=== PATIENT | male | born 1960 | race Caucasian/White ===

== ENCOUNTER → 2016-06-12 | Outpatient (CLI) | payer BC ==
[2016-06-12 10:18] LABS: HEMOGLOBIN A1C 6.74 % (4.2-6.0); MEAN BLOOD GLUCOSE (CALC) 138.442 mg/dL
[2016-06-12 10:23] LABS: ASPARTATE AMINO TRANSFERASE 44 IU/L (21-57); BILIRUBIN,TOTAL 0.8 mg/dL (0.3-1.2); BLOOD UREA NITROGEN 15 mg/dL (7-22); BUN/CREATININE RATIO 13.63 (6-20); CALCIUM 9.7 mg/dL (8.7-10.7); CHLORIDE 99 meq/L (98-112); CREATININE 1.1 mg/dL (0.70-1.50); EST GLOMERULAR FILTRATION > 60 (>60 ml/min/1.73m(2)); GLUCOSE 115 mg/dL (78-110); HDL CHOLESTEROL 44 mg/dL (40-150); POTASSIUM 4.4 meq/L (3.8-5.2); SODIUM 139 meq/L (135-145); TOTAL PROTEIN 7.5 g/dL (6.1-8.0); TRIGLYCERIDES 78 mg/dL (44-200)
[2016-06-12 10:28] LABS: CREATININE, URINE 93.9 MG/DL (15-500)
== END ==
LOC: LAB 09:55
PROVIDERS: ATTEND Internal Medicine
DX: E10.9 Type 1 diabetes mellitus without complications (principal); Z79.4 Long term (current) use of insulin; E03.9 Hypothyroidism, unspecified; E78.5 Hyperlipidemia, unspecified; Z96.41 Presence of insulin pump (external) (internal)
CPT/HCPCS: 36415; 80053; 80061; 82043; 82550; 83036; 84443